=== PATIENT | female | born 1980 | race Caucasian/White ===

== ENCOUNTER 2018-02-24 22:05 | Emergency (ER) | payer BC ==
[~2018-02-24] VITALS: Ht 162.6 cm; Wt 77.3 kg
[2018-02-24] MEDS ORDERED: normal saline 1000ML IV soln IVB ONE ×3 (22:25→23:50)
[2018-02-24] MEDS ORDERED: ondansetron/PF 4mg/2ml inj IV ONE ×2 (22:50→23:50)
[2018-02-24] MEDS ORDERED: famotidine/PF 10 mg/ml inj IV ONE (22:50)
[2018-02-24] MEDS ORDERED: pantoprazole 40 MG vial IV ONE (22:50)
[2018-02-24] MEDS ORDERED: ketorolac tromethamine 15mg/ml inj. IV ONE (23:00)
[2018-02-24] MEDS ORDERED: MORPHINE 2MG in 2ml NS syringe IV PRN (23:00)
[2018-02-24 23:25] LABS: BASOPHILS % (AUTO) 0.2 % (0-1); EOSINOPHILS % (AUTO) 0.3 % (0-6); HEMATOCRIT 45.7 % (35.0-45.0); HEMOGLOBIN 15.4 g/dl (12.0-16.0); LYMPHOCYTES % (AUTO) 20.7 % (21-51); MEAN CORPUSCULAR HEMOGLOBIN 27.4 PG (27.0-31.0); MEAN CORPUSCULAR HGB CONC 33.7 % (33.0-36.5); MEAN CORPUSCULAR VOLUME 81.3 FL (78-98); MEAN PLATELET VOLUME 8.6 FL (7.4-10.4); MONOCYTES # (AUTO) 1.5 X10'3 (0-0.9); MONOCYTES % (AUTO) 15.9 % (2-12); NEUTROPHILS % (AUTO) 62.9 % (42-75); PLATELET COUNT 319 X10'3 (140-440); RED BLOOD COUNT 5.63 X10'6 (4.20-5.60); RED CELL DISTRIBUTION WIDTH 29.7 % (11.5-14.5); WHITE BLOOD COUNT 9.5 X10'3 (4.5-11.0)
[2018-02-24 23:26] LABS: ALANINE AMINOTRANSFERASE 40 U/L (12-78); ALBUMIN 3.5 G/DL (3.4-5.0); ALBUMIN/GLOBULIN RATIO 0.9 (1.1-1.5); ALKALINE PHOSPHATASE 158 IU/L (46-116); ANION GAP 13 (8-16); ASPARTATE AMINO TRANSFERASE 24 U/L (10-37); BILIRUBIN,TOTAL 0.9 MG/DL (0.1-1.0); BLOOD UREA NITROGEN 28 MG/DL (7-18); BUN/CREATININE RATIO 27.5 (6.6-38.0); CALCIUM 9.1 MG/DL (8.5-10.1); CHLORIDE 94 MMOL/L (99-107); CREATININE 1.02 MG/DL (0.40-0.90); GLUCOSE 147 MG/DL (70-104); LIPASE 354 U/L (73-393); POTASSIUM 4.1 MMOL/L (3.5-5.1); SODIUM 131 MMOL/L (135-145); TOTAL CARBON DIOXIDE 23.7 MMOL/L (24-32); TOTAL PROTEIN 7.6 G/DL (6.4-8.2); eGFR 61 ML/MIN
[2018-02-24 23:28] VITALS: BP 112/86
[2018-02-24] MEDS ORDERED: HYDR-3965 PO (23:47)
[2018-02-24] MEDS ORDERED: FAMO20TA44 PO (23:47)
[2018-02-24] MEDS ORDERED: PHE25R PR (23:47)
[2018-02-24] MEDS ORDERED: ONDA4TAB9 PO (23:47)
[2018-02-24] MEDS ORDERED: OMEP20CA10 PO (23:47)
[2018-02-25 03:50] LABS: ANISOCYTOSIS 3+; PLATELET ESTIMATE NORMAL; TOTAL CELLS COUNTED 100
[2018-02-25 03:51] LABS: ELLIPTOCYTES 1+
== END 2018-02-25 00:51 | disposition home or self-care (01) ==
LOC: ER 22:06
DX: K52.9 Noninfective gastroenteritis and colitis, unspecified (principal); E86.0 Dehydration; N28.9 Disorder of kidney and ureter, unspecified; Z85.038 Personal history of other malignant neoplasm of large intestine
CPT/HCPCS: 36415; 80053; 83690; 85025; 96361; 96374; 96375; 96376; 99285; C9113; J1885; J2274; J2405; J3490; J7030

== ENCOUNTER 2024-02-12 11:02 | Emergency (ER) | payer BC ==
[~2024-02-12] VITALS: Ht 167.6 cm; Wt 78.7 kg
[~2024-02-12 11:02] MED LIST: FAMO20TA44 PO; OMEP20CA15 PO; ONDA8TAB9 PO; PHE25R PR
[2024-02-12 11:06] VITALS: BP 161/110; PULSE 88; RESP 18; TEMP 97.8; O2SAT 98
[2024-02-12 11:45] LABS: BASOPHILS # (AUTO) 0.1 X10'3 (0-0.2); BASOPHILS % (AUTO) 0.6 % (0-1); EOSINOPHILS # (AUTO) 0.5 X10'3 (0-0.9); EOSINOPHILS % (AUTO) 5.1 % (0-6); LYMPHOCYTES # (AUTO) 2.2 X10'3 (1.1-4.8); LYMPHOCYTES % (AUTO) 21.2 % (21-51); MEAN CORPUSCULAR HEMOGLOBIN 31.3 PG (27.0-31.0); MEAN CORPUSCULAR HGB CONC 32.6 g/dL (33.0-36.5); MEAN CORPUSCULAR VOLUME 96.1 FL (78-98); MEAN PLATELET VOLUME 8.7 FL (7.4-10.4); MONOCYTES # (AUTO) 1.7 X10'3 (0-0.9); MONOCYTES % (AUTO) 16.1 % (2-12); PLATELET COUNT 418 X10'3 (140-440); RED BLOOD COUNT 4.79 X10'6 (4.20-5.60); RED CELL DISTRIBUTION WIDTH 17.4 % (11.5-14.5); WHITE BLOOD COUNT 10.5 X10'3 (4.5-11.0)
[2024-02-12 11:55] LABS: ALBUMIN 3.8 G/DL (3.4-5.0); ANION GAP 9 (8-16); BLOOD UREA NITROGEN 10 MG/DL (7-18); BUN/CREATININE RATIO 11.9 (10.0-20.0); CALCIUM 10.8 MG/DL (8.5-10.1); CHLORIDE 101 MMOL/L (99-107); CREATININE 0.84 MG/DL (0.40-0.90); GLUCOSE 103 MG/DL (70-104); LIPASE 36 U/L (16-77); POTASSIUM 3.9 MMOL/L (3.5-5.1); SODIUM 142 MMOL/L (135-145); eCRCL 82 ML/MIN; eGFR 74 ML/MIN
[2024-02-12 12:06] LABS: ANISOCYTOSIS 1+; PLATELET ESTIMATE NORMAL; TOTAL CELLS COUNTED 100
[2024-02-12 12:07] LABS: BURR CELLS FEW; ELLIPTOCYTES FEW; STOMATOCYTES FEW
[2024-02-12] MEDS ORDERED: DICY20TA17 PO (15:33)
== END 2024-02-12 16:07 | disposition home or self-care (01) ==
LOC: ER 11:03
DX: R10.84 Generalized abdominal pain (principal); Z51.11 Encounter for antineoplastic chemotherapy; R11.0 Nausea; Z79.899 Other long term (current) drug therapy
CPT/HCPCS: 80048; 83690; 85007; 85025; 99283